=== PATIENT | female | born 1970 | race Caucasian/White ===

== ENCOUNTER 2017-06-04 17:15 | Emergency (ER) | payer OTHER ==
[~2017-06-04] VITALS: Ht 162.6 cm; Wt 54.4 kg
[~2017-06-04 17:15] MED LIST: BUTRANS1 EAC1; CELEBREX50 MG; CELEBREX50 MG PO; CYMBALTA60 MG PO; DEPAKOTE ER500 MG PO; DEPAKOTE500 MG PO; DIAZEPAM 10 MG10 M2 PO; ENJUVIA1.25 MG PO; EVAMIST8.1 ML TRANSDERM; HYDROCHLOROTH12.5 MG PO; HYDROCHLOROTHIA25 M1 PO; HYDROXYZINE HCL25 M1 PO; IBUPROFEN 800800 MG PO; IMITREX 50 MG T50 M1 PO; K-DUR 20 MEQ T20 MEQ PO; MAG DELAY64 MG PO; NAPROSYN500 MG PO; NEURONTIN600 MG PO; NORCO 5-325 TA1 EACH PO; NUCYNTA100 MG; OPANA ER20 MG PO; PRILOSEC 20 MG20 MG PO; SYSTANE 0.3-0.1 EACH OPHTHALMIC; ULTRAM 50MG TAB50 MG PO; ZANAFLEX2 M1 PO
[2017-06-04] MEDS ORDERED: AMOXICILLIN 50500 MG PO (18:27)
[2017-06-04] MEDS ORDERED: TRAMADOL 50 MG50 MG PO (18:27)
== END 2017-06-04 18:33 | disposition home or self-care (01) ==
LOC: ER 17:15
DX: K08.89 Other specified disorders of teeth and supporting structures (principal); Z90.710 Acquired absence of both cervix and uterus; Z88.1 Allergy status to other antibiotic agents; Z88.8 Allergy status to other drugs, medicaments and biological substances

== ENCOUNTER → 2018-06-19 | Outpatient (CLI) | payer OTHER ==
[~2018-06-19] MED LIST changes: +AMOXICILLIN 50500 MG PO; +TRAMADOL 50 MG50 MG PO
== END ==
LOC: RAD 12:18
DX: M25.531 Pain in right wrist (principal); M53.3 Sacrococcygeal disorders, not elsewhere classified